=== PATIENT | female | born 1990 | race Caucasian/White ===

== ENCOUNTER → 2018-11-24 10:13 | Outpatient (CLI) | payer OTHER, SELFPAY ==
[2018-11-24 11:13] LABS: Glucose 96 mg/dL (70-100)
[2018-11-24 11:29] LABS: Follicle Stimulating Hormone 4.89 mIU/mL; Free T4, Direct Thyroxine 1.02 ng/dL (0.78-2.19)
[2018-11-24 11:43] LABS: Thyroid Stimulating Hormone 4.46 uIU/mL (0.47-4.68)
[2018-11-25 15:36] LABS: Insulin Level Total 88.7 uIU/mL (2.0-19.6)
== END ==
PROVIDERS: Visit Provider Obstetrics & Gynecology
DX: N97.0 Female infertility associated with anovulation (principal)
CPT/HCPCS: 36415; 82947; 83001; 83002; 83525; 84439; 84443

== ENCOUNTER → 2019-05-03 10:39 | Outpatient (CLI) | payer OTHER, SELFPAY ==
[2019-05-03 12:24] LABS: Free T4, Direct Thyroxine 0.93 ng/dL (0.78-2.19)
[2019-05-03 12:38] LABS: Thyroid Stimulating Hormone 2.51 uIU/mL (0.47-4.68)
== END ==
PROVIDERS: Visit Provider Obstetrics & Gynecology
DX: E28.2 Polycystic ovarian syndrome (principal)
CPT/HCPCS: 36415; 84439; 84443

== ENCOUNTER → 2020-08-06 17:25 | Outpatient (CLI) | payer OTHER, SELFPAY ==
--- NOTE | 2020-08-06 17:29 | DI.RAD.S_ITS ---
PROCEDURE: XR THORACIC SPINE 3V INDICATIONS: Pain with stiffness TECHNIQUE: 4 views of the thoracic spine were acquired. COMPARISON: None. FINDINGS: Bones: No acute fractures or dislocations. No suspicious bony lesions. 12 pairs of ribs are noted, and appear intact where visualized. Soft tissues: No paravertebral stripe thickening. IMPRESSION: No acute osseous abnormality. If the symptoms persist with conservative management, consider cross sectional imaging such as CT or MRI for further assessment. Dictated by: Demond Sarkar M.D. on 08/06/2020 at 18:02 Approved by: Demond Sarkar M.D. on 08/06/2020 at 18:02
--- NOTE | 2020-08-06 17:29 | DI.RAD.S_ITS ---
PROCEDURE: XR CERVICAL SPINE 2V OR 3V INDICATIONS: neck pain with stiffness TECHNIQUE: 3 view(s) of the cervical spine were acquired. COMPARISON: [facility], , XR THORACIC SPINE 3V, 08/06/2020, 17:32. FINDINGS: Bones: No fractures or dislocations to the C5 level on lateral view. Swimmer's view performed on the thoracic spine radiographs performed at the same time shows no displaced fracture of the C6 or C7 vertebra. The lateral masses of C1 appear intact on the odontoid view. No suspicious bony lesions. There is loss of normal cervical lordosis, which may be related to patient positioning. Soft tissues: No prevertebral soft tissue swelling. IMPRESSION: No acute cervical spine fracture. The loss of cervical lordosis may be related to patient positioning. No significant prevertebral soft tissue swelling is seen. Dictated by: Demond Sarkar M.D. on 08/06/2020 at 17:59 Approved by: Demond Sarkar M.D. on 08/06/2020 at 18:01
== END ==
PROVIDERS: Referring Provider Physician Assistant; Visit Provider Physician Assistant
DX: S16.1XXA Strain of muscle, fascia and tendon at neck level, initial encounter (principal); M54.2 Cervicalgia; M43.6 Torticollis; X58.XXXA Exposure to other specified factors, initial encounter
CPT/HCPCS: 72040; 72072

== ENCOUNTER → 2020-08-10 15:30 | Outpatient (CLI) | payer OTHER, SELFPAY | PROVIDERS: Visit Provider Physician Assistant | DX: R30.0 Dysuria (principal) | CPT/HCPCS: 87086 ==

== ENCOUNTER → 2020-08-22 09:54 | Outpatient (CLI) | payer OTHER, SELFPAY ==
[2020-08-22 10:48] LABS: COVID19 -Nasal RAPID Negative (Negative)
== END ==
PROVIDERS: Visit Provider Physician Assistant
DX: J02.9 Acute pharyngitis, unspecified (principal)
CPT/HCPCS: 87635

== ENCOUNTER → 2020-09-29 09:15 | Outpatient (CLI) | payer OTHER, SELFPAY | PROVIDERS: Referring Provider Physician Assistant; Visit Provider Physician Assistant | DX: R30.0 Dysuria (principal) | CPT/HCPCS: 87086 ==